=== PATIENT | male | born 1985 ===

== ENCOUNTER 2024-05-24 23:34 | Emergency (ER) | payer OTHER ==
[~2024-05-24] VITALS: Ht 165.1 cm; Wt 81.8 kg
[2024-05-25] MEDS: BACITRACIN 0.9 GM PACKET OINTMENT TP ONE (00:21)
[2024-05-25] MEDS: LIDOCAINE 1%/EPI 1:200,000/PF 10 ML VIAL SQ ONE (00:22)
[2024-05-25 01:00] VITALS: BP 128/80; PULSE 85; RESP 16; TEMP 97.3; O2SAT 97
== END 2024-05-25 01:30 | disposition home or self-care (01) ==
LOC: EMS 23:34
DX: S01.311A Laceration without foreign body of right ear, initial encounter (principal); Z88.0 Allergy status to penicillin; W22.8XXA Striking against or struck by other objects, initial encounter; Y93.89 Activity, other specified; Y92.89 Other specified places as the place of occurrence of the external cause; Y99.8 Other external cause status
CPT/HCPCS: 99283; 12011; J3490